=== PATIENT | female | born 1940 | race Caucasian/White ===

== ENCOUNTER 2019-01-02 09:11 | Outpatient (REF) | payer MEDICARE, SELFPAY ==
[2019-01-03 08:04] LABS: Absolute Basophil Count 0.05 k/cumm (0.0-0.2); Absolute Lymphocyte Count 1.46 k/cumm (1.2-3.4); Absolute Monocyte Count 0.83 k/cumm (0.11-0.7); Absolute Neutrophil Count 3.62 k/cumm (1.2-6.7); Basophils % 0.8; Eosinophils % 1.7; HCT 43.2 % (36.0-46.0); HGB 14.2 g/dL (12.0-15.5); Lymphocytes % 24.1; Mean Corp. HGB Concentration 32.9 g/dL (32.0-36.0); Mean Corpuscular Hemoglobin 30.8 pg (27.0-33.0); Mean Corpuscular Volume 93.7 fL (80-95); Mean Platelet Volume 11.2 fL (8.0-11.0); Monocytes % 13.7; Neutrophils % 59.7; Platelet Count 281 x1000/uL (130-400); RBC 4.61 m/cumm (4.00-5.20); White Blood Cell Count 6.06 k/cumm (4.4-10.8)
[2019-01-03 08:45] LABS: Anion Gap 9.2 mmol/L (3-11); BUN 19 mg/dL (7-18); CO2 27.8 mmol/L (21.0-32.0); Calcium 9.4 mg/dL (8.5-10.1); Chloride 105 mmol/L (98-107); Glucose 99 mg/dL (70-100); Potassium 4.2 mmol/L (3.5-5.1); Sodium 142 mmol/L (136-145); TSH 2.01 uIU/mL (0.358-3.74); Vitamin B12 355 pg/mL (193-986)
== END 2019-01-02 09:31 ==
LOC: NCHCN 09:11
PROVIDERS: PCP Internal Medicine; Visit Provider Internal Medicine
DX: I10 Essential (primary) hypertension (principal); L21.9 Seborrheic dermatitis, unspecified; K21.9 Gastro-esophageal reflux disease without esophagitis; R27.9 Unspecified lack of coordination; R41.3 Other amnesia
CPT/HCPCS: 80048; 82607; 84443; 85025

== ENCOUNTER 2019-04-04 08:51 | Outpatient (REF) | payer MEDICARE, SELFPAY ==
[2019-04-04 22:34] LABS: Calculated LDL 211 mg/dL; Cholesterol 321 mg/dL (50-200); HDL Cholesterol 60 mg/dL (40-60); Triglyceride 250 mg/dL (30-150)
== END 2019-04-04 09:11 ==
LOC: NCHCN 08:51
PROVIDERS: PCP Internal Medicine; Visit Provider Internal Medicine
DX: E78.5 Hyperlipidemia, unspecified (principal)
CPT/HCPCS: 80061; 83721

== ENCOUNTER 2019-12-18 15:49 | Outpatient (REF) | payer MEDICARE, SELFPAY ==
[2019-12-18 20:26] LABS: HCT 40.8 % (36.0-46.0); HGB 13.5 g/dL (12.0-15.5); Mean Corp. HGB Concentration 33.1 g/dL (32.0-36.0); Mean Corpuscular Volume 90.7 fL (80-95); Mean Platelet Volume 10.8 fL (8.0-11.0); Platelet Count 293 x1000/uL (130-400); RBC Distribution Width 14.2 % (11.7-14.6); White Blood Cell Count 7.34 k/cumm (4.4-10.8)
[2019-12-18 20:34] LABS: ALT 19 U/L (14-59); AST 25 U/L (15-37); Albumin 3.7 g/dL (3.4-5.0); Alkaline Phosphatase 110 U/L (46-116); Anion Gap 6.3 mmol/L (3-11); BUN 18 mg/dL (7-18); Bilirubin, Total 0.7 mg/dL (0.2-1.0); CO2 29.7 mmol/L (21.0-32.0); CREATININE 1.24 mg/dL (0.55-1.02); Calcium 8.9 mg/dL (8.5-10.1); Calculated LDL 205 mg/dL (<100); Chloride 104 mmol/L (98-107); Cholesterol 324 mg/dL (<200); Estimated GFR 41.52 (mL/min/1.73m2); Glucose 148 mg/dL (74-106); HDL Cholesterol 79 mg/dL (40-60); Potassium 4.4 mmol/L (3.5-5.1); Sodium 140 mmol/L (136-145); Total Protein 7.6 g/dL (6.4-8.2); Triglyceride 200 mg/dL (<150)
== END 2019-12-18 16:09 ==
LOC: NCHCN 15:49
PROVIDERS: PCP Internal Medicine; Visit Provider Internal Medicine
DX: E78.5 Hyperlipidemia, unspecified (principal); I10 Essential (primary) hypertension; R42 Dizziness and giddiness
CPT/HCPCS: 80053; 80061; 85027

== ENCOUNTER 2020-05-28 09:08 | Outpatient (REF) | payer MEDICARE, SELFPAY ==
[2020-05-28 21:08] LABS: Anion Gap 6.4 mmol/L (3-11); BUN 13 mg/dL (7-18); CO2 31.6 mmol/L (21.0-32.0); CREATININE 1.03 mg/dL (0.55-1.02); Calcium 8.8 mg/dL (8.5-10.1); Calculated LDL 97 mg/dL (<100); Chloride 104 mmol/L (98-107); Cholesterol 203 mg/dL (<200); Glucose 115 mg/dL (74-106); HDL Cholesterol 82 mg/dL (40-60); Potassium 3.3 mmol/L (3.5-5.1); Sodium 142 mmol/L (136-145); TSH (W/Ref FT4) 1.61 uIU/mL (0.36-3.74); Triglyceride 120 mg/dL (<150)
== END 2020-05-28 09:28 ==
LOC: NCHCN 09:08
PROVIDERS: PCP Internal Medicine; Visit Provider Internal Medicine
DX: I10 Essential (primary) hypertension (principal); E78.5 Hyperlipidemia, unspecified; R60.0 Localized edema
CPT/HCPCS: 80048; 80061; 84443

== ENCOUNTER 2020-06-17 11:42 | Outpatient (REF) | payer MEDICARE, SELFPAY ==
[2020-06-17 21:29] LABS: Anion Gap 10.5 mmol/L (3-11); BUN 12 mg/dL (7-18); CO2 29.5 mmol/L (21.0-32.0); Chloride 101 mmol/L (98-107); Estimated GFR 53.08 (mL/min/1.73m2); Glucose 107 mg/dL (74-106); Potassium 3.7 mmol/L (3.5-5.1); Sodium 141 mmol/L (136-145)
== END 2020-06-17 12:02 ==
LOC: NCHCN 11:42
PROVIDERS: PCP Internal Medicine; Visit Provider Internal Medicine
DX: I10 Essential (primary) hypertension (principal); R61 Generalized hyperhidrosis
CPT/HCPCS: 80048

== ENCOUNTER 2020-12-10 11:53 | Outpatient (REF) | payer MEDICARE, SELFPAY ==
[2020-12-10 13:03] LABS: Anion Gap 9.9 mmol/L (3-11); BUN 15 mg/dL (7-18); CO2 29.1 mmol/L (21.0-32.0); Calcium 8.7 mg/dL (8.5-10.1); Chloride 102 mmol/L (98-107); Estimated GFR 53.08 (mL/min/1.73m2); Glucose 156 mg/dL (74-106); Potassium 3.4 mmol/L (3.5-5.1); Sodium 141 mmol/L (136-145)
== END 2020-12-10 11:54 | disposition home or self-care (01) ==
LOC: NCHCN 11:53
PROVIDERS: PCP Internal Medicine; Visit Provider Internal Medicine
DX: I10 Essential (primary) hypertension (principal)
CPT/HCPCS: 80048

== ENCOUNTER 2020-12-16 11:54 | Outpatient (REF) | payer MEDICARE, SELFPAY ==
[2020-12-16 21:53] LABS: Hemoglobin A1C 5.8 % (<5.7)
[2020-12-16 21:55] LABS: Vitamin B12 406 pg/mL (193-986)
== END 2020-12-16 11:55 | disposition home or self-care (01) ==
LOC: NCHCN 11:54
PROVIDERS: PCP Internal Medicine; Visit Provider Internal Medicine
DX: R73.9 Hyperglycemia, unspecified (principal); G20 Parkinson's disease; R41.3 Other amnesia
CPT/HCPCS: 82607; 83036

== ENCOUNTER 2021-10-03 18:03 | Outpatient (REF) | payer MEDICARE, SELFPAY ==
[2021-10-03 21:57] LABS: Hemoglobin A1C 5.9 % (<5.7)
[2021-10-03 21:58] LABS: Anion Gap 10.5 mmol/L (3-11); BUN 18 mg/dL (7-18); CO2 27.5 mmol/L (21.0-32.0); CREATININE 0.9 mg/dL (0.55-1.02); Calcium 8.8 mg/dL (8.5-10.1); Calculated LDL 84 mg/dL (<100); Chloride 106 mmol/L (98-107); Cholesterol 207 mg/dL (<200); Glucose 90 mg/dL (74-106); HDL Cholesterol 90 mg/dL (40-60); Potassium 4.3 mmol/L (3.5-5.1); Sodium 144 mmol/L (136-145); Triglyceride 169 mg/dL (<150)
== END 2021-10-03 18:04 | disposition home or self-care (01) ==
LOC: NCHCN 18:03
PROVIDERS: PCP Internal Medicine; Visit Provider Internal Medicine
DX: I10 Essential (primary) hypertension (principal); R73.9 Hyperglycemia, unspecified; E78.5 Hyperlipidemia, unspecified
CPT/HCPCS: 80048; 80061; 83036

== ENCOUNTER 2021-10-08 21:09 | Outpatient (REF) | payer MEDICARE, SELFPAY ==
[2021-10-09 00:16] LABS: Vitamin D 25 Total 31.7 ng/mL (30-100)
== END 2021-10-08 21:10 | disposition home or self-care (01) ==
LOC: NCHCN 21:09
PROVIDERS: PCP Internal Medicine; Visit Provider Internal Medicine
DX: M81.0 Age-related osteoporosis without current pathological fracture (principal)
CPT/HCPCS: 82306

== ENCOUNTER 2022-09-08 14:46 | Outpatient (REF) | payer MEDICARE, SELFPAY ==
[2022-09-08 15:48] LABS: Abs Immature Grans 0.03 10^3/uL (0.0-0.06); Absolute Basophil Count 0.08 10^3/uL (0.0-0.2); Absolute Eosinophil Count 0.28 10^3/uL (0.0-0.7); Absolute Lymphocyte Count 1.38 10^3/uL (1.2-3.4); Absolute Monocyte Count 0.73 10^3/uL (0.1-0.8); Absolute Neutrophil Count 4.56 10^3/uL (1.2-6.7); Basophils % 1.1; HCT 40.2 % (36.0-46.0); HGB 13.3 g/dL (11.2-15.7); Immature Grans % 0.4; Lymphocytes % 19.5; MCH 30.2 pg (27.0-33.0); MCHC 33.1 % (32.0-36.0); MCV 91 fL (80-95); MPV 10.4 fL (8.0-11.0); Monocytes % 10.3; Neutrophils % 64.7; Platelet Count 325 10^3/uL (130-400); RDW 13.2 % (11.7-14.6); WBC 7.06 10^3/uL (4.4-10.8)
[2022-09-08 16:26] LABS: ALT 9 U/L (14-59); AST 28 U/L (15-37); Albumin 3.7 g/dL (3.4-5.0); Alkaline Phosphatase 102 U/L (46-116); Anion Gap 10.3 mmol/L (3-11); BUN 17 mg/dL (7-18); Bilirubin, Total 0.8 mg/dL (0.2-1.0); CO2 26.7 mmol/L (21.0-32.0); Calcium 8.6 mg/dL (8.5-10.1); Chloride 103 mmol/L (98-107); Estimated GFR 55.55 (mL/min/1.73m2); Glucose 154 mg/dL (74-106); Potassium 3.4 mmol/L (3.5-5.1); Sodium 140 mmol/L (136-145); TSH 0.78 uIU/mL (0.36-3.74); Total Protein 7.2 g/dL (6.4-8.2)
== END 2022-09-08 14:47 | disposition home or self-care (01) ==
LOC: NCHCN 14:46
PROVIDERS: PCP Internal Medicine; Visit Provider Nurse Practitioner Family
DX: R41.0 Disorientation, unspecified (principal)
CPT/HCPCS: 80053; 84443; 85025

== ENCOUNTER 2022-11-16 16:08 | Outpatient (REF) | payer MEDICARE, SELFPAY ==
[2022-11-16 21:49] LABS: Bilirubin Negative (Negative); Blood Negative (Negative); Clarity Sl Cloudy (Clear); Glucose Negative (Negative); Ketones Negative (Negative); Leukocyte Esterase Trace (Negative); Nitrite Negative (Negative); Specific Gravity >= 1.030 (1.005-1.025); Urobilinogen 0.2 mg/dL (Up to 0.2); pH 5.5 (5-8)
[2022-11-16 22:04] LABS: Bacteria Few HPF (Negative); C & S Indicated? Yes; Casts Negative LPF (Negative); Crystals Mod Calcium Oxalate HPF (Negative); Epithelial Cells Few HPF (Negative); Mucus Negative (Negative)
== END 2022-11-16 16:09 | disposition home or self-care (01) ==
LOC: NCHCN 16:08
PROVIDERS: PCP Internal Medicine; Visit Provider Internal Medicine
DX: R39.89 Other symptoms and signs involving the genitourinary system (principal); R82.998 Other abnormal findings in urine
CPT/HCPCS: 81003; 81015; 87086

== ENCOUNTER 2023-05-18 17:27 | Outpatient (REF) | payer MEDICARE, SELFPAY | END 2023-05-18 17:28 | disposition home or self-care (01) | LOC: NCHCN 17:27 | PROVIDERS: PCP Internal Medicine; Visit Provider Internal Medicine | DX: N39.0 Urinary tract infection, site not specified (principal) | CPT/HCPCS: 87086 ==

== ENCOUNTER 2023-08-06 07:20 | Day surgery (SDC) | payer MEDICARE, SELFPAY ==
--- NOTE | 2023-08-06 06:20 | ANES.PREOP_ITS ---
General Info Date of Service Date Performed: 08/06/23 Height: 5 ft Weight: 46.7 kg Body Mass Index (BMI): 20.0 Surgical Procedure: Operation Date: 08/06/23 09:10 Proposed Procedure Side Surgeon p Cataract Extraction with IOL Implant Left Abraham Morrissey MD Meds Allergies and Home Medications Allergies Allergy/AdvReac Type Severity Reaction Status Date / Time atorvastatin AdvReac Intermediate muscle Verified 08/06/23 07:57 aches Home Medication Medication Instructions Recorded alendronate 70 mg tablet 70 mg PO QWEEK 08/05/23 aspirin 81 mg tablet,delayed 81 mg PO DAILY 08/05/23 release (Adult Aspirin Regimen) carbidopa 25 mg-levodopa 100 mg 2 tab PO TID 08/05/23 tablet evolocumab 140 mg/mL subcutaneous 140 mg subcut Q2W 08/05/23 pen injector (Felix Leonardick) multivitamin (Daily Multi-Vitamin 1 tab PO DAILY 08/05/23 tablet) mupirocin 2 % topical ointment 1 applic topical BID PRN 08/05/23 omeprazole 20 mg capsule,delayed 20 mg PO DAILY 08/05/23 release rotigotine 4 mg/24 hour 4 mg transdermal Q24H 08/05/23 transdermal 24 hour patch (Neupro) sertraline 50 mg tablet 50 mg PO DAILY 08/05/23 calcium carbonate 600 mg-vitamin cap PO 08/06/23 D3 12.5 mcg (500 unit) capsule (Calcium 600 with Vitamin D3) Current Visit Medications: Current Medications Generic Name Dose Route Start Last Admin Trade Name Freq PRN Reason Stop Dose Admin Acetaminophen 1,000 mg 08/06/23 06:00 Acetaminophen 500 Mg Tab PO 09/05/23 05:59 Q4H PRN PRN Balanced Salt Solution 500 ml 08/06/23 06:00 Balanced Salt Soln.-Plus 500 Ml Bag OP 09/05/23 05:59 DIRECTED HEMA Miscellaneous Medication 0 ml 08/06/23 06:00 Tropicam./Phenyleph. (1/2.5%) 5 Ml Btl OS 09/05/23 05:59 DIRECTED HEMA Miscellaneous Medication 0 ml 08/06/23 06:00 Prednisolone 1%, Moxifloxacin 0.5%, Bromfenac 0.09% 5ml Btl OS 09/05/23 05:59 DIRECTED HEMA Tetracaine HCl 0 ml 08/06/23 06:00 Tetracaine 0.5% 4 Ml Btl OS 09/05/23 05:59 DIRECTED [facility] PFSH Active Problems Active Problems: Problem Status Onset Code Cortical age-related cataract, left eye H25.012 Nuclear age-related cataract, left eye H25.12 Medical History Medical History Generalized hyperhidrosis Prediabetes Amnesia disoriented09/08/18 Major depression Cerebral infarction 02/23/2019 Urinary tract infectious disease Actinic keratitis Dizziness and giddiness Pain in thoracic spine hx fracture Senile osteoporosis Hard of hearing History of fracture of wrist with closed reduction and cast Frequent falls HTN (hypertension) CAD (coronary artery disease) Hyperlipemia CVA (cerebral vascular accident) 01/2022 Foot drop abnormal gait Dementia Parkinson disease Medical History Comments:: Denture upper and lower. Surgical History Surgical History History of tonsillectomy History of colonoscopy Tobacco Smoking/Tobacco Use Status: Former Tobacco Use Alcohol Alcohol Intake: never Substance Use Substance use: Never Substance use type: does not use Vital Signs and Lab Results Vital Signs Most Recent Vital Signs in EMR: Temp Pulse Resp BP Pulse Ox 36.3 C L 85 16 140/58 L 97 08/06/23 07:46 08/06/23 07:46 08/06/23 07:46 08/06/23 07:46 08/06/23 07:46 Lab Results Blood Type / Crossmatch: No Data to Display Complete Blood Count: No Data to Display Complete Metabolic Panel: No Data to Display Liver Function Panel: No Data to Display Coagulation Panel: No Data to Display Cardiac Panel: No Data to Display Arterial Blood Gas: No Data to Display Venous Blood Gas: No Data to Display Pancreas Panel: No Data to Display Thyroid Panel: No Data to Display Infectious Disease: No Data to Display Blood Cultures: No Data to Display Toxicology Panel: No Data to Display Anesthesia Assessment and Plan Anesthesia History Personal History: No History of Anesthesia Complications Family History: No Family History of Anesthesia Complications Exercise Tolerance Exercise Tolerance: Metabolic Equivalents<4 Cardiac & Pulmonary Exam Cardiac Exam: Normal S1/S2 Heart Sounds Pulmonary Exam: Clear Bilateral Breath Sounds Implantable Cardiac Device Does patient have a Pacemaker or an ICD?: No Airway Exam Known Difficult Airway: No Mallampati Class: 4 Mouth Opening: Narrow (< 3cm) Thyromental Distance: Less than 3 cm Neck Range of Motion: Limited ROM Neck Circumference: Normal Teeth Condition: Removable Dentures/Plates Upper, Removable Dentures/Plates Lower and Edentulous ASA Classification ASA Score: ASA 3 Emergency Case?: No NPO Status NPO Status: NPO Clears >2 hours, Solids >8 hours Anesthesia Plan Resuscitation Status: Full Code Anesthesia Technique: MAC Anesthesia Airway Planned: Natural Airway Monitors Used: Standard Monitors Preoperative Comments:: 83 yo female for cataract removal. sig PMHx: HTN, CAD (no records of this, pt states it was a while ago they said may have had some ischemia), CVA (residual left side weakness, depression, dementia, Parkinson's (carbidopa-levodopa) preDM (5.9), former smoker,
[2023-08-06 07:46] VITALS: BP 140/58; PULSE 85; RESP 16; TEMP 36.3; O2SAT 97
[2023-08-06] MEDS: Tropicam./Phenyleph. (1/2.5%) 5 ML BTL OS ×3 (07:55→08:13)
[2023-08-06] MEDS: Balanced Salt Soln.-PLUS 500 ML BAG OP (09:27)
[2023-08-06] MEDS: Tetracaine 0.5% 4 ML BTL OS (09:28)
[2023-08-06] MEDS: Duovisc Viscoelastic System EACH 1 EACH (09:29)
[2023-08-06] MEDS: Lidocaine 1% Pres-Free 5 ML VIAL (09:30)
[2023-08-06] MEDS: Phenylephrine/Lidocaine (15/10) MG/ML 1 ML VIAL (09:32)
[2023-08-06] MEDS: Povidone-Iodine Ophth 30 ML BTL (09:32)
[2023-08-06 09:50] VITALS: BP 149/74; PULSE 84; RESP 18; TEMP 36.3; O2SAT 99
--- NOTE | 2023-08-06 09:50 | W.PM.DSUDISC ---
Date of service: 08/06/23 Time of Service: 09:50 Discharge Plan Disposition Patient Disposition: Home Discharge Details Attending Provider: Abraham Morrissey Primary Care Provider: Itzel Garcia Home Meds and New Rx's Prescriptions: No Action Neupro 4 mg/24 hour patch 24 hour 4 mg transdermal Q24H Repatha SureClick 140 mg/mL pen injector 140 mg subcut Q2W omeprazole 20 mg capsule,delayed release(DR/EC) 20 mg PO DAILY multivitamin [Daily Multi-Vitamin] Tablet 1 tab PO DAILY sertraline 50 mg tablet 50 mg PO DAILY carbidopa-levodopa 25-100 mg tablet 2 tab PO TID aspirin [Adult Aspirin Regimen] 81 mg tablet,delayed release (DR/EC) 81 mg PO DAILY alendronate 70 mg tablet 70 mg PO QWEEK mupirocin 2 % ointment 1 applic topical BID PRN calcium carbonate-vitamin D3 [Calcium 600 with Vitamin D3] 600 mg-12.5 mcg (500 unit) capsule PO Discharge Instructions Stand Alone Forms: Post-op Topical Cataract, Tim Tejada (DSU) Discharge Orders Discharge Orders: Discharge Order (Routine); Ordered 08/06/23 Ordered By: Abraham Morrissey DS: Diagnosis Discharge Diagnosis (1) Cortical age-related cataract, left eye: Status: Resolved (2) Nuclear age-related cataract, left eye: Status: Resolved
--- NOTE | 2023-08-06 09:51 | W.PM.OP ---
Date of service: 08/06/23 Time of Service: 09:51 Operative Note Operative Note DATE OF PROCEDURE: 08/06/23 PRE-OP DIAGNOSIS: Nuclear/cortical cataract, left eye POST-OP DIAGNOSIS: same PROCEDURE: Cataract extraction using phacoemulsification with intraocular lens implant, left eye SURGEON: Abraham Morrissey ANESTHESIA TYPE: Local By Surgeon and MAC Refer to Anesthesia Record PATHOLOGY: none sent COMPLICATIONS: None Patient was transported to: same day Patient's condition: stable Implants: Domo Clareon [id number] Indications: Progressive decreased vision due to cataract, left eye Procedure Description: CATARACT SURGERY OPERATIVE REPORT PREOPERATIVE DIAGNOSIS: Nuclear/cortical cataract, left eye POSTOPERATIVE DIAGNOSIS: Same OPERATION: Cataract extraction using phacoemulsification with posterior chamber intraocular lens implant, left eye. IOL: IOL Research And Development Technician/Model: Domo Clareon [id number] IOL Power: + 23.0 diopters IOL Serial Number: [id number] Optic Diameter: 6.0mm Haptic/Overall Diameter: 13.0mm PHACO INFO: [facility] Vision System with OZil and Active Fluidics Cumulative Dispersed Energy (CDE): 13.87 seconds SURGEON: Abraham Morrissey MD, ANDREEA ANESTHESIA: Monitored Anesthesia Care (MAC), with local sub-tenon's anesthetic infiltration COMPLICATIONS: None SPECIMENS: None INDICATIONS FOR PROCEDURE: The patient is an 83-year-old lady with history of diminished visual acuity in her left eye secondary to the development of nuclear/cortical cataract. She is significantly symptomatic that she desires cataract surgery and attempt to improve and maximize her vision. See office notes for detailed information. PROCEDURE: The correct surgical eye was identified and marked as the left eye and the pupil was dilated in the preoperative area using mydriatics and cycloplegics. The dilated pupil size was 7.0 mm. The patient elected to proceed without oral sedation. The patient was brought to the operating room where cardiopulmonary monitoring was instituted and surgical time-out was performed, confirming the correct operative eye and IOL power. Topical anesthesia was administered and ophthalmic povidone-iodine 5% was instilled into the conjunctival fornices. The stefany-ocular area was prepped with Betadine 10% solution and draped in the usual sterile fashion for intraocular surgery, including an aperture drape. A Tegaderm transparent film dressing was cut in half and used to cover the lashes and lid margins. Care was taken to sequester the lashes and lid margins under the Tegaderm dressing. A lid speculum was placed between the lids of the operative eye and the Domo [employer] operating microscope was maneuvered into position. Remi scissors were then used to make a conjunctival buttonhole approximately 6mm posterior to the limbus in the inferonasal quadrant. Blunt dissection was carried out to expose bare sclera, and a blunt-tipped sub-tenon?s anesthesia cannula was introduced and passed posteriorly along the globe where non-preserved plain lidocaine was injected into posterior sub-Tenon?s space. A sideport knife was used to make a paracentesis port. Intraocular phenylephrine/lidocaine was injected into the anterior chamber. The anterior chamber was then filled with viscoelastic. A keratome knife was used construct a two-plane clear corneal tunnel extending 2.0mm into clear cornea. A flap was raised on the anterior capsule and capsulorhexis forceps were used to complete a continuous curvilinear capsulorhexis of 5.5 mm. Balanced salt solution was then used to perform cortical cleaving hydrodissection and nuclear hydrodelineation until the lens could be freely rotated within the capsular bag. The lens nucleus was then disassembled and removed within the capsular bag and iris plane using phacoemulsification. Residual cortical material was removed using the irrigation/aspiration handpiece. The posterior capsule was carefully polished to remove as much residual lens epithelial cells as safely possible. The capsular bag was then inflated and the anterior chamber deepened with viscoelastic. The lens implant described above was inserted into the capsular bag using the Domo Autonome Injector. A Kuglen hook was used to dial the IOL into position. Residual viscoelastic was then removed first from posterior to the IOL, then from the anterior chamber using the I/A handpiece. The lens implant was noted to center nicely within the capsular bag. The incisions were stromally hydrated, and the anterior chamber was reformed using BSS. Then 0.5cc of moxifloxacin 1.0mg/ml were injected into the capsular bag and anterior chamber. The incisions were checked with a Weck spear and found to be secure. Several drops of ophthalmic povidone-iodine 5% were then applied to the eye followed by two drops of Imprimis combination prednisolone/moxifloxacin/nepafenac solution. The drapes were removed and a clear plastic protective eye shield was placed over the eye. The patient was then returned to Same Day Surgery in stable condition.
--- NOTE | 2023-08-06 10:30 | W.ANESPOSTOP ---
Postoperative Evaluation Date, Time and Location Date Performed: 08/06/23 Time Performed: 10:30 Patient Location: Day Surgery Unit Vital Signs Most Recent Imported Vital Signs: Most Recent Vital Signs Temp Pulse Resp BP Pulse Ox 36.3 C L 84 18 149/74 H 99 08/06/23 09:50 08/06/23 09:50 08/06/23 09:50 08/06/23 09:50 08/06/23 09:50 Pain Score Most Recent Pain Score: Most Recent Pain Score Pain Level 0 08/06/23 09:50 Assessment Mental Status: Awake (Alert & Oriented to Patient Baseline) Airway and Respiratory Function: Patent airway with normal (patient baseline) respiratory exam Cardiovascular Function: Hemodynamically Stable Hydration Status: Adequately Hydrated Nausea & Vomiting: No Nausea or Vomiting Pain: Pt. Denies Any Pain Peripheral Nerve Block: Patient did not receive a nerve block
== END 2023-08-06 10:22 | disposition home or self-care (01) ==
LOC: SUR 07:20
PROVIDERS: PCP Internal Medicine; Visit Provider Ophthalmology
PROC: (CPT 66984; principal; 2023-08-06 09:00)
DX: H25.012 Cortical age-related cataract, left eye (principal); H25.12 Age-related nuclear cataract, left eye; I10 Essential (primary) hypertension
CPT/HCPCS: 66984; 00123; V2632

== ENCOUNTER 2023-08-16 16:17 | Outpatient (REF) | payer MEDICARE, SELFPAY ==
[2023-08-16 22:21] LABS: Bilirubin Negative (Negative); Blood Trace-intact (Negative); Clarity Clear (Clear); Glucose Negative (Negative); Ketones Negative (Negative); Leukocyte Esterase Trace (Negative); Nitrite Negative (Negative); Specific Gravity 1.025 (1.005-1.025); Urobilinogen 0.2 mg/dL (Up to 0.2); pH 6.5 (5-8)
[2023-08-16 22:41] LABS: Bacteria Rare HPF (Negative); Epithelial Cells Many HPF (Negative); Other Cells Rare Renal (Negative); RBC 0-2 HPF (0-2)
[2023-08-16 22:42] LABS: C & S Indicated? No/Sq. Contamination; Casts Negative LPF (Negative); Crystals Many Calcium Oxalate HPF (Negative); Mucus Negative (Negative)
== END 2023-08-16 16:18 | disposition home or self-care (01) ==
LOC: NCHCN 16:17
PROVIDERS: PCP Internal Medicine; Visit Provider Internal Medicine
DX: N39.0 Urinary tract infection, site not specified (principal)
CPT/HCPCS: 81003; 81015

== ENCOUNTER 2023-08-20 08:27 | Day surgery (SDC) | payer MEDICARE, SELFPAY ==
--- NOTE | 2023-08-20 08:49 | W.ANESPRE ---
General Info Date of Service Date Performed: 08/20/23 Height: 5 ft Weight: 46.7 kg Body Mass Index (BMI): 20.0 Surgical Procedure: Operation Date: 08/20/23 09:55 Proposed Procedure Side Surgeon p Cataract Extraction with IOL Implant Right Abraham Morrissey MD Meds Allergies and Home Medications Allergies Allergy/AdvReac Type Severity Reaction Status Date / Time atorvastatin AdvReac Intermediate muscle Verified 08/18/23 15:49 aches Home Medication Medication Instructions Recorded alendronate 70 mg tablet 70 mg PO QWEEK 08/05/23 aspirin 81 mg tablet,delayed 81 mg PO DAILY 08/05/23 release (Adult Aspirin Regimen) carbidopa 25 mg-levodopa 100 mg 2 tab PO TID 08/05/23 tablet evolocumab 140 mg/mL subcutaneous 140 mg subcut Q2W 08/05/23 pen injector (Felix Schultz) multivitamin (Daily Multi-Vitamin 1 tab PO DAILY 08/05/23 tablet) mupirocin 2 % topical ointment 1 applic topical BID PRN 08/05/23 omeprazole 20 mg capsule,delayed 20 mg PO DAILY 08/05/23 release rotigotine 4 mg/24 hour 4 mg transdermal Q24H 08/05/23 transdermal 24 hour patch (Neupro) sertraline 50 mg tablet 50 mg PO DAILY 08/05/23 calcium carbonate 600 mg-vitamin 1 cap PO DAILY 08/06/23 D3 12.5 mcg (500 unit) capsule (Calcium 600 with Vitamin D3) Current Visit Medications: Current Medications Generic Name Dose Route Start Last Admin Trade Name Freq PRN Reason Stop Dose Admin Acetaminophen 1,000 mg 08/20/23 06:00 Acetaminophen 500 Mg Tab PO 09/19/23 05:59 Q4H PRN PRN Balanced Salt Solution 500 ml 08/20/23 06:00 Balanced Salt Soln.-Plus 500 Ml Bag OP 09/19/23 05:59 DIRECTED HEMA Miscellaneous Medication 0 ml 08/20/23 06:00 Prednisolone 1%, Moxifloxacin 0.5%, Bromfenac 0.09% 5ml Btl OD 09/19/23 05:59 DIRECTED HEMA Miscellaneous Medication 0 ml 08/20/23 06:00 Tropicam./Phenyleph. (1/2.5%) 10 Ml Btl OD 09/19/23 05:59 DIRECTED HEMA Tetracaine HCl 0 ml 08/20/23 06:00 Tetracaine 0.5% 4 Ml Btl OD 09/19/23 05:59 DIRECTED [facility] Active Problems Active Problems: Problem Status Onset Code Cortical age-related cataract, right eye H25.011 Nuclear age-related cataract, right eye H25.11 Cortical age-related cataract, left eye H25.012 Nuclear age-related cataract, left eye H25.12 Medical History Medical History Generalized hyperhidrosis Prediabetes Amnesia disoriented09/08/18 Major depression Cerebral infarction 02/23/2019 Urinary tract infectious disease Actinic keratitis Dizziness and giddiness Pain in thoracic spine hx fracture Senile osteoporosis Hard of hearing History of fracture of wrist with closed reduction and cast Frequent falls HTN (hypertension) CAD (coronary artery disease) Hyperlipemia CVA (cerebral vascular accident) 01/2022 Foot drop abnormal gait Dementia Parkinson disease Medical History Comments:: Denture upper and lower. Surgical History Surgical History History of tonsillectomy History of colonoscopy Tobacco Smoking/Tobacco Use Status: Former Tobacco Use Alcohol Alcohol Intake: current Alcohol intake frequency: a few times a month Alcohol type: beer Substance Use Substance use: Never Substance use type: does not use Vital Signs and Lab Results Lab Results Blood Type / Crossmatch: No Data to Display Complete Blood Count: No Data to Display Complete Metabolic Panel: No Data to Display Liver Function Panel: No Data to Display Coagulation Panel: No Data to Display Cardiac Panel: No Data to Display Arterial Blood Gas: No Data to Display Venous Blood Gas: No Data to Display Pancreas Panel: No Data to Display Thyroid Panel: No Data to Display Infectious Disease: No Data to Display Blood Cultures: No Data to Display Toxicology Panel: No Data to Display Anesthesia Assessment and Plan Anesthesia History Personal History: No History of Anesthesia Complications Family History: No Family History of Anesthesia Complications Exercise Tolerance Exercise Tolerance: Metabolic Equivalents<4 Pertinent Negatives Pertinent Negatives: No Symptoms of GERD Cardiac & Pulmonary Exam Cardiac Exam: Normal S1/S2 Heart Sounds Pulmonary Exam: Clear Bilateral Breath Sounds Implantable Cardiac Device Does patient have a Pacemaker or an ICD?: No Airway Exam Known Difficult Airway: No Mallampati Class: 3 Mouth Opening: Narrow (< 3cm) Thyromental Distance: Less than 3 cm Neck Range of Motion: Limited ROM Neck Circumference: Normal Teeth Condition: Removable Dentures/Plates Upper, Removable Dentures/Plates Lower and Edentulous ASA Classification ASA Score: ASA 3 Emergency Case?: No NPO Status NPO Status: NPO Clears >2 hours, Solids >8 hours Anesthesia Plan Resuscitation Status: Full Code Anesthesia Technique: MAC Anesthesia Airway Planned: Natural Airway Monitors Used: Standard Monitors
[2023-08-20 08:59] VITALS: BP 143/58; PULSE 84; RESP 16; TEMP 36.5; O2SAT 96
[2023-08-20] MEDS: Tetracaine 0.5% 4 ML BTL OD (09:37)
[2023-08-20] MEDS: Povidone-Iodine Ophth 30 ML BTL (09:38)
[2023-08-20] MEDS: Lidocaine 1% Pres-Free 5 ML VIAL (09:45)
[2023-08-20] MEDS: Balanced Salt Soln.-PLUS 500 ML BAG OP (09:45)
[2023-08-20] MEDS: Duovisc Viscoelastic System EACH 1 EACH (09:47)
[2023-08-20 10:06] VITALS: BP 145/68; PULSE 82; RESP 16; TEMP 36.2; O2SAT 98
--- NOTE | 2023-08-20 10:06 | W.PM.DSUDISC ---
Date of service: 08/20/23 Time of Service: 10:07 Discharge Plan Disposition Patient Disposition: Home Discharge Details Attending Provider: Abraham Morrissey Primary Care Provider: Itzel Garcia Home Meds and New Rx's Prescriptions: No Action Neupro 4 mg/24 hour patch 24 hour 4 mg transdermal Q24H Repatha SureClick 140 mg/mL pen injector 140 mg subcut Q2W omeprazole 20 mg capsule,delayed release(DR/EC) 20 mg PO DAILY multivitamin [Daily Multi-Vitamin] Tablet 1 tab PO DAILY sertraline 50 mg tablet 50 mg PO DAILY carbidopa-levodopa 25-100 mg tablet 2 tab PO TID aspirin [Adult Aspirin Regimen] 81 mg tablet,delayed release (DR/EC) 81 mg PO DAILY alendronate 70 mg tablet 70 mg PO QWEEK mupirocin 2 % ointment 1 applic topical BID PRN calcium carbonate-vitamin D3 [Calcium 600 with Vitamin D3] 600 mg-12.5 mcg (500 unit) capsule 1 cap PO DAILY Discharge Instructions Stand Alone Forms: Post-op Topical Cataract, Tim Tejada (DSU) Discharge Orders Discharge Orders: Discharge Order (Routine); Ordered 08/20/23 Ordered By: Abraham Morrissey DS: Diagnosis Discharge Diagnosis (1) Nuclear age-related cataract, right eye: Status: Resolved (2) Cortical age-related cataract, right eye: Status: Resolved
--- NOTE | 2023-08-20 10:08 | ROE_ITS ---
Date of service: 08/20/23 Time of Service: 10:08 Operative Note Operative Note DATE OF PROCEDURE: 08/20/23 PRE-OP DIAGNOSIS: Nuclear/cortical cataract, right eye POST-OP DIAGNOSIS: same PROCEDURE: Cataract extraction using phacoemulsification with intraocular lens implant, right eye SURGEON: Abraham Morrissey ANESTHESIA TYPE: Local By Surgeon and MAC Refer to Anesthesia Record ESTIMATED BLOOD LOSS: 0 PATHOLOGY: none sent COMPLICATIONS: None Patient was transported to: same day Patient's condition: stable Implants: Domo Clareon [id number] Indications: Progressive decreased vision due to cataract, right eye Procedure Description: CATARACT SURGERY OPERATIVE REPORT PREOPERATIVE DIAGNOSIS: Nuclear/cortical cataract, right eye POSTOPERATIVE DIAGNOSIS: Same OPERATION: Cataract extraction using phacoemulsification with posterior chamber intraocular lens implant, right eye. IOL: IOL Asphalt Smoother/Model: Domo Clareon [id number] IOL Power: + 23.0 diopters IOL Serial Number: [id number] Optic Diameter: 6.0mm Haptic/Overall Diameter: 13.0mm PHACO INFO: Domo [employer] Vision System with OZil and Active Fluidics Cumulative Dispersed Energy (CDE): 8.3 to seconds SURGEON: Abraham Morrissey MD, ANDREEA ANESTHESIA: Monitored Anesthesia Care (MAC), with local sub-tenon's anesthetic infiltration COMPLICATIONS: None SPECIMENS: None INDICATIONS FOR PROCEDURE: The patient is an 83-year-old lady with history of diminished visual acuity in both eyes secondary to the development of bilateral nuclear/cortical cataract. She has already undergone cataract surgery in the left eye and is doing well postoperatively. She now presents for cataract surgery in the right eye. See office notes for detailed information. PROCEDURE: The correct surgical eye was identified and marked as the right eye and the pupil was dilated in the preoperative area using mydriatics and cycloplegics. The dilated pupil size was 7.0 mm. The patient elected to proceed without oral sedation. The patient was brought to the operating room where cardiopulmonary monitoring was instituted and surgical time-out was performed, confirming the correct operative eye and IOL power. Topical anesthesia was administered and ophthalmic povidone-iodine 5% was instilled into the conjunctival fornices. The stefany-ocular area was prepped with Betadine 10% solution and draped in the usual sterile fashion for intraocular surgery, including an aperture drape. A Tegaderm transparent film dressing was cut in half and used to cover the lashes and lid margins. Care was taken to sequester the lashes and lid margins under the Tegaderm dressing. A lid speculum was placed between the lids of the operative eye and the Nathan-Gonzalez operating microscope was maneuvered into position. Remi scissors were then used to make a conjunctival buttonhole approximately 6mm posterior to the limbus in the inferonasal quadrant. Blunt dissection was carried out to expose bare sclera, and a blunt-tipped sub-tenon?s anesthesia cannula was introduced and passed posteriorly along the globe where non- preserved plain lidocaine was injected into posterior sub-Tenon?s space. A sideport knife was used to make a paracentesis port. Intraocular phenylephrine/lidocaine was injected into the anterior chamber. The anterior chamber was then filled with viscoelastic. A keratome knife was used to construct a two--plane clear corneal tunnel extending 2.0mm into clear cornea. A flap was raised on the anterior capsule and capsulorhexis forceps were used to complete a continuous curvilinear capsulorhexis of 5.0 mm. Balanced salt solution was then used to perform cortical cleaving hydrodissection and nuclear hydrodelineation until the lens could be freely rotated within the capsular bag. The lens nucleus was then disassembled and removed within the capsular bag and iris plane using phacoemulsification. Residual cortical material was removed using the I/A handpiece. The posterior capsule was carefully polished to remove as much residual lens epithelial cells as safely possible. The capsular bag was then inflated and the anterior chamber deepened with cohesive viscoelastic. The lens implant described above was inserted into the capsular bag using the Domo Aut[employer]ome Injector. A Kuglen hook was used to dial the IOL into position. Residual viscoelastic was then removed first from posterior to the IOL, then from the anterior chamber using the I/A handpiece. The lens implant was noted to center nicely within the capsular bag. The incisions were stromally hydrated, and the anterior chamber was reformed using BSS. Then 0.5cc of moxifloxacin 1.0mg/ml were injected into the capsular bag and anterior chamber. The incisions were checked with a Weck spear and found to be secure. Several drops of ophthalmic povidone-iodine 5% were then applied to the eye followed by two drops of Imprimis combination prednisolone/moxifloxacin/nepafenac solution. The drapes were removed and a clear plastic protective eye shield was placed over the eye. The patient was then returned to Same Day Surgery in stable condition.
--- NOTE | 2023-08-20 10:16 | W.ANESPOSTOP ---
Postoperative Evaluation Date, Time and Location Date Performed: 08/20/23 Time Performed: 10:16 Patient Location: Day Surgery Unit Vital Signs Most Recent Imported Vital Signs: Most Recent Vital Signs Temp Pulse Resp BP Pulse Ox 36.5 C 84 16 143/58 H 96 08/20/23 08:59 08/20/23 08:59 08/20/23 08:59 08/20/23 08:59 08/20/23 08:59 Pain Score Most Recent Pain Score: Most Recent Pain Score Pain Level 0 08/20/23 08:59 Assessment Mental Status: Awake (Alert & Oriented to Patient Baseline) Airway and Respiratory Function: Patent airway with normal (patient baseline) respiratory exam Cardiovascular Function: Hemodynamically Stable Hydration Status: Adequately Hydrated Nausea & Vomiting: No Nausea or Vomiting Pain: Pt. Denies Any Pain Peripheral Nerve Block: Patient did not receive a nerve block
== END 2023-08-20 10:37 | disposition home or self-care (01) ==
LOC: SUR 08:27
PROVIDERS: PCP Internal Medicine; Visit Provider Ophthalmology
PROC: (CPT 66984; principal; 2023-08-20 09:45)
DX: H25.11 Age-related nuclear cataract, right eye (principal); H25.011 Cortical age-related cataract, right eye; Z98.42 Cataract extraction status, left eye
CPT/HCPCS: 66984; 00123; V2632

== ENCOUNTER 2023-10-20 18:29 | Outpatient (REF) | payer SELFPAY ==
[2023-10-20 16:59] LABS: Abs Immature Grans 0.03 10^3/uL (0.0-0.06); Absolute Eosinophil Count 0.23 10^3/uL (0.0-0.7); Absolute Lymphocyte Count 1.65 10^3/uL (1.2-3.4); Absolute Monocyte Count 0.63 10^3/uL (0.1-0.8); Absolute Neutrophil Count 4.73 10^3/uL (1.2-6.7); Basophils % 1.4; Eosinophils % 3.1; HCT 39.6 % (36.0-46.0); HGB 12.6 g/dL (11.2-15.7); Immature Grans % 0.4; Lymphocytes % 22.4; MCH 29.8 pg (27.0-33.0); MCHC 31.8 % (32.0-36.0); MCV 94 fL (80-95); Monocytes % 8.5; Neutrophils % 64.2; RBC 4.23 10^6/uL (3.93-5.22); RDW 14.8 % (11.7-14.6); RDW-SD 51.4 fL; WBC 7.37 10^3/uL (4.4-10.8)
[2023-10-20 17:12] LABS: Diff Comment PLT Morph Reviewed; RBC Morphology Normal
[2023-10-20 17:18] LABS: ALT 8 U/L (14-59); AST 19 U/L (15-37); Albumin 3.5 g/dL (3.4-5.0); Alkaline Phosphatase 145 U/L (46-116); Anion Gap 8.2 mmol/L (3-11); BUN 22 mg/dL (7-18); Bilirubin, Total 0.4 mg/dL (0.2-1.0); CO2 26.8 mmol/L (21.0-32.0); CREATININE 1.1 mg/dL (0.55-1.02); Calcium 8.3 mg/dL (8.5-10.1); Chloride 104 mmol/L (98-107); Estimated GFR 49.24 (mL/min/1.73m2); Glucose 224 mg/dL (74-106); Potassium 4.1 mmol/L (3.5-5.1); Sodium 139 mmol/L (136-145); TSH 2.66 uIU/mL (0.36-3.74); Total Protein 7.2 g/dL (6.4-8.2)
[2023-10-20 17:42] LABS: Hemoglobin A1C 5.7 % (<5.7)
== END 2023-10-20 18:30 | disposition home or self-care (01) ==
LOC: LBN 18:29
PROVIDERS: PCP Internal Medicine; Referring Provider Internal Medicine; Visit Provider Internal Medicine
DX: Z83.3 Family history of diabetes mellitus (principal); M62.81 Muscle weakness (generalized); D89.9 Disorder involving the immune mechanism, unspecified
CPT/HCPCS: 80053; 83036; 84443; 85025

== ENCOUNTER 2024-03-10 22:26 | Outpatient (REF) | payer MEDICARE, SELFPAY ==
[2024-03-10 16:45] LABS: ALT 10 U/L (14-59); AST 16 U/L (15-37); Albumin 3.5 g/dL (3.4-5.0); Alkaline Phosphatase 77 U/L (46-116); Anion Gap 9.5 mmol/L (3-11); BUN 21 mg/dL (7-18); Bilirubin, Total 0.42 mg/dL (0.2-1.0); CO2 26.5 mmol/L (21.0-32.0); Calcium 8.7 mg/dL (8.5-10.1); Chloride 105 mmol/L (98-107); Estimated GFR 55.21 (mL/min/1.73m2); Glucose 91 mg/dL (74-106); Potassium 4.6 mmol/L (3.5-5.1); Sodium 141 mmol/L (136-145); Total Protein 6.3 g/dL (6.4-8.2)
== END 2024-03-10 22:27 | disposition home or self-care (01) ==
LOC: NCHCN 22:26
PROVIDERS: PCP Internal Medicine; Visit Provider Internal Medicine
DX: I10 Essential (primary) hypertension (principal); E78.5 Hyperlipidemia, unspecified; Z79.899 Other long term (current) drug therapy
CPT/HCPCS: 80053

== ENCOUNTER 2024-06-07 16:05 | Outpatient (REF) | payer MEDICARE, SELFPAY | END 2024-06-07 16:06 | disposition home or self-care (01) | LOC: NCHCN 16:05 | PROVIDERS: PCP Internal Medicine; Visit Provider Internal Medicine | DX: I69.311 Memory deficit following cerebral infarction (principal); B96.29 Other Escherichia coli [E. coli] as the cause of diseases classified elsewhere | CPT/HCPCS: 87077; 81003; 87086; 87186 ==

== ENCOUNTER 2024-07-21 16:58 | Outpatient (REF) | payer MEDICARE, SELFPAY ==
[2024-07-21 18:01] LABS: Bilirubin Negative (Negative); Blood Negative (Negative); Clarity Clear (Clear); Glucose Negative (Negative); Ketones Negative (Negative); Leukocyte Esterase Negative (Negative); Nitrite Negative (Negative); Specific Gravity 1.025 (1.005-1.025); Urobilinogen 0.2 mg/dL (Up to 0.2); pH 5.5 (5-8)
== END 2024-07-21 16:59 | disposition home or self-care (01) ==
LOC: LBN 16:58
PROVIDERS: PCP Internal Medicine; Visit Provider Internal Medicine
DX: Z87.440 Personal history of urinary (tract) infections (principal)
CPT/HCPCS: 81003; 87086

== ENCOUNTER 2024-09-28 17:26 | Outpatient (REF) | payer MEDICARE, SELFPAY ==
[2024-09-28 16:24] LABS: Abs Immature Grans 0.03 10^3/uL (0.0-0.06); Absolute Eosinophil Count 0.25 10^3/uL (0.0-0.7); Absolute Lymphocyte Count 2.51 10^3/uL (1.2-3.4); Absolute Monocyte Count 0.99 10^3/uL (0.1-0.8); Absolute Neutrophil Count 4.28 10^3/uL (1.2-6.7); Basophils % 1.2 %; Eosinophils % 3.1 %; HCT 35.3 % (36.0-46.0); HGB 12.1 g/dL (11.2-15.7); Immature Grans % 0.4 %; Lymphocytes % 30.8 %; MCH 29.7 pg (27.0-33.0); MCHC 34.3 % (32.0-36.0); MCV 87 fL (80-95); MPV 10.1 fL (8.0-11.0); Monocytes % 12.1 %; Neutrophils % 52.4 %; Platelet Count 472 10^3/uL (130-400); RBC 4.08 10^6/uL (3.93-5.22); RDW 14.6 % (11.7-14.6); RDW-SD 46.3 fL; WBC 8.16 10^3/uL (4.4-10.8)
[2024-09-28 16:40] LABS: ALT 16 U/L (14-59); AST 45 U/L (15-37); Alkaline Phosphatase 124 U/L (46-116); Anion Gap 3.3 mmol/L (3-11); BUN 23 mg/dL (7-18); Bilirubin, Total 0.55 mg/dL (0.2-1.0); CO2 34.7 mmol/L (21.0-32.0); Calcium 7.5 mg/dL (8.5-10.1); Chloride 100 mmol/L (98-107); Estimated GFR 54.87 (mL/min/1.73m2); Glucose 82 mg/dL (74-106); Sodium 138 mmol/L (136-145); Total Protein 5.1 g/dL (6.4-8.2)
[2024-09-28 16:56] LABS: Potassium 2.1 mmol/L (3.5-5.1)
[2024-09-28 17:01] LABS: Bilirubin Negative (Negative); Blood Negative (Negative); Clarity Cloudy (Clear); Glucose Negative (Negative); Ketones Negative (Negative); Leukocyte Esterase Moderate (Negative); Nitrite Positive (Negative); Specific Gravity 1.015 (1.005-1.025); Urobilinogen 0.2 mg/dL (Up to 0.2)
[2024-09-28 17:21] LABS: Bacteria Many HPF (Negative); C & S Indicated? C&S Done As Ordered; Casts Negative LPF (Negative); Crystals Negative HPF (Negative); Epithelial Cells Few HPF (Negative); Mucus Negative (Negative); Other Cells Mod Transitional (Negative); RBC Negative HPF (0-2)
== END 2024-09-28 17:27 | disposition home or self-care (01) ==
LOC: NCHCN 17:26
PROVIDERS: PCP Internal Medicine; Visit Provider Internal Medicine
DX: N18.9 Chronic kidney disease, unspecified (principal)
CPT/HCPCS: 80053; 87077; 81003; 81015; 85025; 87086; 87186

== ENCOUNTER 2024-10-02 15:57 | Outpatient (REF) | payer MEDICARE, SELFPAY ==
[2024-10-02 16:44] LABS: Potassium 2.9 mmol/L (3.5-5.1)
== END 2024-10-02 15:58 | disposition home or self-care (01) ==
LOC: NCHCN 15:57
PROVIDERS: PCP Internal Medicine; Visit Provider Internal Medicine
DX: E87.6 Hypokalemia (principal)
CPT/HCPCS: 84132

== ENCOUNTER 2024-10-06 17:13 | Outpatient (REF) | payer MEDICARE, SELFPAY ==
[2024-10-06 16:02] LABS: Potassium 3.3 mmol/L (3.5-5.1)
== END 2024-10-06 17:14 | disposition home or self-care (01) ==
LOC: NCHCN 17:13
PROVIDERS: PCP Internal Medicine; Visit Provider Internal Medicine
DX: E78.5 Hyperlipidemia, unspecified (principal); M62.81 Muscle weakness (generalized)
CPT/HCPCS: 84132

== ENCOUNTER 2024-10-09 15:27 | Outpatient (REF) | payer MEDICARE, SELFPAY ==
[2024-10-09 15:37] LABS: Anion Gap 0.9 mmol/L (3-11); BUN 24 mg/dL (7-18); CO2 35.1 mmol/L (21.0-32.0); Chloride 106 mmol/L (98-107); Estimated GFR 54.87 (mL/min/1.73m2); Glucose 82 mg/dL (74-106); Potassium 3.9 mmol/L (3.5-5.1); Sodium 142 mmol/L (136-145)
== END 2024-10-09 15:28 | disposition home or self-care (01) ==
LOC: NCHCN 15:27
PROVIDERS: PCP Internal Medicine; Visit Provider Internal Medicine
DX: E87.6 Hypokalemia (principal)
CPT/HCPCS: 80048

== ENCOUNTER 2024-10-23 15:05 | Outpatient (REF) | payer MEDICARE, SELFPAY ==
[2024-10-23 15:44] LABS: Abs Immature Grans 0.03 10^3/uL (0.0-0.06); Absolute Basophil Count 0.09 10^3/uL (0.0-0.2); Absolute Eosinophil Count 0.26 10^3/uL (0.0-0.7); Absolute Lymphocyte Count 1.53 10^3/uL (1.2-3.4); Absolute Neutrophil Count 3.22 10^3/uL (1.2-6.7); Basophils % 1.5 %; Eosinophils % 4.4 %; HCT 30.5 % (36.0-46.0); HGB 10.1 g/dL (11.2-15.7); Immature Grans % 0.5 %; Lymphocytes % 25.8 %; MCHC 33.1 % (32.0-36.0); MCV 91 fL (80-95); Monocytes % 13.5 %; Neutrophils % 54.3 %; Platelet Count 419 10^3/uL (130-400); RBC 3.37 10^6/uL (3.93-5.22); RDW 17.3 % (11.7-14.6); RDW-SD 56.9 fL; WBC 5.93 10^3/uL (4.4-10.8)
[2024-10-23 16:28] LABS: ALT 15 U/L (14-59); AST 38 U/L (15-37); Albumin 1.9 g/dL (3.4-5.0); Alkaline Phosphatase 145 U/L (46-116); Anion Gap 6.8 mmol/L (3-11); BUN 11 mg/dL (7-18); CO2 26.2 mmol/L (21.0-32.0); CREATININE 0.8 mg/dL (0.55-1.02); Calcium 7.6 mg/dL (8.5-10.1); Chloride 111 mmol/L (98-107); Estimated GFR 71.71 (mL/min/1.73m2); Glucose 75 mg/dL (74-106); Potassium 3.7 mmol/L (3.5-5.1); Sodium 144 mmol/L (136-145); Total Protein 4.8 g/dL (6.4-8.2)
[2024-10-23 21:44] LABS: Hemoglobin A1C 5.6 % (<5.7)
[2024-10-24 11:18] LABS: TSH 2.09 uIU/mL (0.36-3.74)
== END 2024-10-23 15:06 | disposition home or self-care (01) ==
LOC: NCHCN 15:05
PROVIDERS: PCP Internal Medicine; Visit Provider Internal Medicine
DX: M81.0 Age-related osteoporosis without current pathological fracture (principal); M62.81 Muscle weakness (generalized); E87.6 Hypokalemia
CPT/HCPCS: 80053; 83036; 84443; 85025

== ENCOUNTER 2025-03-13 16:28 | Outpatient (REF) | payer MEDICARE, SELFPAY ==
[2025-03-13 16:46] LABS: Anion Gap 9.8 mmol/L (3-11); BUN 24 mg/dL (7-18); CO2 25.2 mmol/L (21.0-32.0); Calcium 9.0 mg/dL (8.5-10.1); Chloride 107 mmol/L (98-107); Estimated GFR 62.26 (mL/min/1.73m2); Glucose 125 mg/dL (74-106); Potassium 4.8 mmol/L (3.5-5.1); Sodium 142 mmol/L (136-145)
== END 2025-03-13 16:29 | disposition home or self-care (01) ==
LOC: LBN 16:28
PROVIDERS: PCP Internal Medicine; Visit Provider Internal Medicine
DX: E87.6 Hypokalemia (principal)
CPT/HCPCS: 80048